=== PATIENT | female | born 1980 | race Two or more races ===

== ENCOUNTER → 2020-04-27 08:00 | Outpatient (CLI) | payer OTHER | END | disposition home or self-care (01) | LOC: LAB 08:00 → ADM 12:30 → AMB-ENDOS 05-04 12:30 → EDSTATUS 05-04 12:30 | PROVIDERS: ATTEND Colon & Rectal Surgery | DX: U07.1 COVID-19 (principal); K57.30 Diverticulosis of large intestine without perforation or abscess without bleeding; K92.1 Melena ==